=== PATIENT | female | born 1980 | race Caucasian/White ===

== ENCOUNTER → 2018-11-06 | Outpatient (CLI) | payer OTHER ==
--- NOTE | 2018-11-06 18:36 | REP ---
Digital diagnostic bilateral mammography with CAD and focused left breast sonography: History: Left breast lump times 2 months. The patient status post saline augmentation implants. Mammographic findings: A skin marker is affixed to the skin at the site of the palpable lump which projects in the upper outer quadrant on the left. Implant displaced and implant included CC and MLO views of each breast were obtained. The breast parenchyma is heterogeneously dense in a pattern which may inhibit the sensitivity of mammography. Intact saline retro pectoral implants are seen bilaterally. No dominant density is seen in the either breast. No spiculation, architectural distortion, or microcalcification is seen. Sonographic findings: The left breast is scanned in the area of the palpable lump at 3 o'clock. Heterogeneous fibroglandular background echotexture is seen. Multiple cysts are seen. At the site of the palpable lump there is a septated a 6 x 5 x 2 mm cyst located 2.4 cm from the nipple. There is also 7 mm cyst closest to the nipple, 1.1 cm from the nipple. There is a grouping of smaller cysts measuring a 1.2 cm in aggregate dimension 4.9 cm from the nipple. Implant margins are smooth. Impression: BIRADS category II benign mammographic and sonographic findings: Clinical follow-up is advised. BIRADS 2: BI-RADS/ACR category 2 mammogram. Benign Findings. This mammogram was interpreted with the aid of an FDA-approved computer-aided detection system. The patient states she had a clinical breast exam in August 2018 The patient letter being requested is M2. Electronically Signed by Marlon Underwood MD 11/06/2018 06:42 P
== END ==
LOC: M RAD 08:45
PROVIDERS: ATTEND Emergency Medicine
DX: N63.20 Unspecified lump in the left breast, unspecified quadrant (principal); Z98.82 Breast implant status

== ENCOUNTER → 2019-03-11 | Outpatient (CLI) | payer OTHER ==
[2019-03-11 10:32] LABS: COMPLEMENT C3 92 MG/DL (90-180); COMPLEMENT C4 19 MG/DL (10-40)
--- NOTE | 2019-03-12 02:08 | REP ---
Clinical: Degenerative pain. Technique: Four total views of the bilateral sacroiliac joints. Findings: Bilateral sacroiliac joints are symmetric and normal. No periarticular sclerosis, cystic changes, or effusion appreciated. Impression: Normal bilateral sacroiliac joints. Electronically Signed by Chapito Wilson MD 03/12/2019 01:59 A
[2019-03-17 14:19] LABS: ANTI DS-DNA AB <1:10 titer (.); HLA-B27 Negative (.); RNP ANTIBODY < 0.2 AI (0.0-0.9); SMITHS ANTIBODY < 0.2 AI (0.0-0.9)
== END ==
LOC: M LAB 09:30
PROVIDERS: ATTEND Internal Medicine Rheumatology
DX: M51.36 Other intervertebral disc degeneration, lumbar region (principal); R76.8 Other specified abnormal immunological findings in serum
CPT/HCPCS: 36415; 72202; 81374; 82570; 84156; 86160; 86225; 86255; G0463